=== PATIENT | male | born 1970 | race Caucasian/White ===

== ENCOUNTER 2020-06-01 22:36 | Emergency (ER) | payer SELFPAY ==
[~2020-06-01] VITALS: Ht 177.8 cm; Wt 77.1 kg
== END 2020-06-02 00:15 | disposition home or self-care (01) ==
LOC: ER 22:36
DX: S01.01XA Laceration without foreign body of scalp, initial encounter (principal); I50.9 Heart failure, unspecified; Z95.1 Presence of aortocoronary bypass graft; W22.8XXA Striking against or struck by other objects, initial encounter; Z23 Encounter for immunization
CPT/HCPCS: 12002; 90471; 90714; 99283-25